=== PATIENT | male | born 1940 | race Caucasian/White ===

== ENCOUNTER 2017-11-02 11:39 | Inpatient (IN) | payer MEDICARE, MEDICAID ==
[~2017-11-02] VITALS: Ht 180.3 cm; Wt 102.2 kg
[2017-11-02] VITALS (11 sets, daily range): BP systolic 96–169; BP diastolic 58–89
[~2017-11-02 11:39] MED LIST: ALPR.25T PO; AMLO10TA82 PO; AMLO5TAB2 PO; APIX5TAB2 PO; ASP81CT PO; ASP81TEC PO; Atorvastatin Calcium PO; CHOL2000 PO; DCS100C PO; DOXY-13 PO; FINA5TAB6 PO; FNST5T PO; FRSM20T PO; GLIM4TAB PO; GLMP4T PO; HDRL25T PO; HSC375CCR PO; HYDR-757 PO; HYOS0.3710 PO; ISM60TCR PO; LBT200T PO; LISI1TAB PO; LISI40TA PO; LSNP20T PO; METF-380 PO; METO50TA7 PO; MTP100TCR PO; NEOM3.5O29 OP; OFLO5DRO2 OP; OMEG1CAP51 PO; PHEN100T26 PO; PHEN200T27 PO; PNT40TEC PO; PRED5DRO5 OP; SITA100T PO; TMSL.4C PO; [UNRECOGNIZED DRUG - OTHER] PO
--- OUTSIDE RECORDS SUMMARY | 2017-11-02 11:45 | XMS REPORT | Continuity of Care Document ---
Author Author [facility] Organization [facility] Address Unknown Phone Unavailable Allergies There is no data. Medications There is no data. Problems There is no data. Procedures There is no data. Results There is no data. Encounters ACCT No. Visit Date/Time Discharge Status Pt. Type Provider Facility Loc./Unit Complaint [id number] 07/09/2014 10:40:00 07/09/2014 16:39:00 DIS Emergency [id number] 01/26/2014 09:13:00 02/06/2014 12:45:00 DIS Inpatient [id number] 01/23/2014 11:01:00 01/23/2014 23:59:59 CLS Outpatient
[2017-11-02] MEDS ORDERED: PROPOFOL DRIP (ICU) 100 ML IV ONE (12:20)
--- NOTE | 2017-11-02 12:23 | ED CPR ---
HPI-CPR General Stated Complaint: UNRESPONSIVE Source of Information: EMS Exam Limitations: No Limitations History of Present Illness Time Seen by Provider: 11:44 Initial Comments The patient is a 77-year-old white male. He was brought in with ongoing resuscitation by EMS. The EMS crew reports that he had been in his shop at home accompanied by a friend. The friend had walked him up to the house and inside and immediately on arriving inside he collapsed. Phone call was placed to EMS at approximately 1045. At arrival it was nearly one hour later. They had been performing resuscitation had intervals for that period of time. He had a Combitube but no endotracheal tube. He had not been alert during that period he had been noted to have a multitude of arrhythmias and was defibrillated in the field. On arrival he was deeply unresponsive. His head was a purple color. There is no evidence of movement or voluntary inspiration. Chest compressions continued. At intervals there was a palpable pulse. Ultimately he exhibited ventricular tachycardia and defibrillation was performed with a return to her appeared to be a sinus rhythm. His stomach was very distended and after placing a 7.5 ET tube and NG tube was placed for decompression. He remained in a sinus rhythm with a palpable pulse his face had now become a very yeimy color but not violaceous. The EKG showed no signs of acute infarct. There was a left-sided conduction delay of indeterminate age. There was lateral ST abnormality. BARBARA Gilman from cardiology arrived in the emergency room and reviewed the physical and historical findings. He recommended an amiodarone bolus and drip. Witnessed Arrest: Yes Paramedics Initial Findings: No Respirations Pre Hospital Treatment: Bag Valve Mask, Defibrillation, Intubation, Oxygen, IV Fluids, Epinephrine (mg) Allergies and Home Medications Allergies Coded Allergies: No Known Drug Allergies (Unverified , 03/22/11) Home Medications Lisinopril 40 Mg Tablet, 40 MG PO DAILY, (Reported) Sitagliptin Phosphate 100 Mg Tablet, 100 MG PO DAILY, (Reported) [Green Tea Ext Drop] , 1 ML PO DAILY, (Reported) Review of Systems Constitutional: see HPI, other (UNRESPONSIVE) Past Nubslhx-Cuhjjb-Kbifhl Hx Immunizations Up To Date Date of Influenza Vaccine: Oct 12, 2013 Reproductive System Hx Reproductive Disorders: No Sexually Transmitted Disease: No Musculoskeletal Musculoskeletal Disorders: Arthritis Endocrine Endocrine Disorders: Diabetes, Non-Insulin dep HEENT HEENT Disorders: Cataract Hearing Impairment: Hard of Hearing Family Medical History Family Medial History: Family history: Cardiovascular disease 03 MOTHER Family history: Diabetes mellitus 03 MOTHER (AMPUTATION OF EXT.) Myocardial infarction Physical Exam Vital Signs Vital Sign - Last 12Hours 11/02/17 11/02/17 11:39 12:23 Temp 97.6 Pulse 76 Resp 20 Pulse Ox 93 O2 Delivery Mechanical Ventilator O2 Flow Rate 100.00 FiO2 40 Capillary Refill : General Appearance: Other (bagging through the Combitube. The face is purple in color. The abdomen is tightly domed and distended.) Neck: Other (short thick neck) Respiratory: Decreased Breath Sounds Cardiovascular: Other (see history of present illness relative to rhythm) Gastrointestinal: Other (distended which resolved with NG suction) Extremity: Other (no edema no palpable pulse) Neurologic/Psychiatric: Other (deeply unresponsive) Lymphatic: No Adenopathy Progress/Results/Core Measures Results/Orders Lab Results Laboratory Tests Test 11/02/17 12:25 11/02/17 12:43 Range/Units White Blood Count 22.4 H 4.3-11.0 10^3/uL Red Blood Count 5.52 4.35-5.85 10^6/uL Hemoglobin 15.6 13.3-17.7 G/DL Hematocrit 48 40-54 % Mean Corpuscular Volume 87 80-99 FL Mean Corpuscular Hemoglobin 28 25-34 PG Mean Corpuscular Hemoglobin Concent 33 32-36 G/DL Red Cell Distribution Width 14.4 10.0-14.5 % Platelet Count 301 130-400 10^3/uL Mean Platelet Volume 10.3 7.4-10.4 FL Neutrophils (%) (Auto) 84 H 42-75 % Lymphocytes (%) (Auto) 12 12-44 % Monocytes (%) (Auto) 3 0-12 % Eosinophils (%) (Auto) 1 0-10 % Basophils (%) (Auto) 0 0-10 % Neutrophils # (Auto) 18.7 H 1.8-7.8 X 10^3 Lymphocytes # (Auto) 2.7 1.0-4.0 X 10^3 Monocytes # (Auto) 0.6 0.0-1.0 X 10^3 Eosinophils # (Auto) 0.2 0.0-0.3 10^3/uL Basophils # (Auto) 0.1 0.0-0.1 10^3/uL Neutrophils % (Manual) 84 % Lymphocytes % (Manual) 6 % Band Neutrophils 10 % Blood Morphology Comment NORMAL Sodium Level 135 135-145 MMOL/L Potassium Level 3.8 3.6-5.0 MMOL/L Chloride Level 101 98-107 MMOL/L Carbon Dioxide Level 17 L 21-32 MMOL/L Anion Gap 17 H 5-14 MMOL/L Blood Urea Nitrogen 24 H 7-18 MG/DL Creatinine 1.50 H 0.60-1.30 MG/DL Estimat Glomerular Filtration Rate 45 BUN/Creatinine Ratio 16 Calcium Level 8.4 L 8.5-10.1 MG/DL Total Bilirubin 0.8 0.1-1.0 MG/DL Aspartate Amino Transf (AST/SGOT) 382 H 5-34 U/L Alanine Aminotransferase (ALT/SGPT) 447 H 0-55 U/L Alkaline Phosphatase 82 40-136 U/L Total Protein 6.6 6.4-8.2 GM/DL Albumin 3.7 3.2-4.5 GM/DL Blood Gas Puncture Site R RAD Blood Gas Patient Temperature 97.3 Arterial Blood pH 7.21 *L 7.37-7.43 Arterial Blood Partial Pressure CO2 43 35-45 MMHG Arterial Blood Partial Pressure O2 76 L 79-93 MMHG Arterial Blood HCO3 17 *L 23-27 MMOL/L Arterial Blood Total CO2 18.1 L 21.0-31.0 MMOL/L Arterial Blood Oxygen Saturation 93 L 94-100 % Arterial Blood Base Excess -9.8 L -2.5-2.5 MMOL/L Boone Test YES-POS Blood Gas Ventilator Setting YES Blood Gas Inspired Oxygen 40% My Orders Orders - MONICA YEN MD Chest 1 View, Ap/Pa Only (11/02/17 12:16) Sputum Culture (11/02/17 12:20) Propofol Drip (Icu) (Diprivan Drip (Icu) (11/02/17 12:20) Heparin (Bolus Per Protocol) (Heparin (B (11/02/17 12:27) Heparin Drip 54079 Unit/500ml (Heparin (11/02/17 12:27) Cbc With Automated Diff (11/02/17 12:40) Comprehensive Metabolic Panel (11/02/17 12:40) Troponin I (11/02/17 12:40) Ekg Tracing (11/02/17 12:40) Catheter(Urinary) Insert & Ass 03,15 (11/02/17 12:40) Ng Tube Insert & Assessment (11/02/17 12:40) Ekg Tracing (11/02/17 12:40) Arterial Blood Gas (11/02/17 12:43) Manual Differential (11/02/17 12:25) Saline Lock/Iv-Start (11/02/17 12:58) Saline Lock/Iv-Start (11/02/17 12:58) Vital Signs/I&O Vital Sign - Last 12Hours 11/02/17 11/02/17 11/02/17 11:39 11:39 12:23 Temp 97.6 Pulse 76 Resp 20 19 B/P (MAP) Pulse Ox 93 O2 Delivery Mechanical Ventilator O2 Flow Rate 100.00 FiO2 40 Departure Communication (Admissions) Progress Notes 1307 extended discussion with the daughter who is EMS trained. The public relations professional KEN is in accompaniment. The patient asked questions and had her options explained to her. Certainly transferred to [place] with the possibility of more aggressive therapy is a possibility. She states that he has told her on many occasions that he did not wish extensive life-support or instrumentation going into the future. Accordingly we ultimately agreed on admission to our ICU. He will remain on the ventilator likely for an interval No longer than 48 hours. Medications will be allowed that there is to be no further chest compression. 1315 the patient was discussed with Dr. Cheng who is on the hospitalist service today. The patient will be admitted to the ICU with the ventilator in place but and restrictions on all other modalities Impression Impression: Primary Impression: status post cardio pulmonary resuscitation Disposition: ADMITTED INPATIENT Condition: Critical Admissions Decision to Admit Reason: Admit from ER (General) Decision to Admit/Date: Nov 02, 2017 Time/Decision to Admit Time: 13:08 Departure-Patient Inst. Referrals: BELLA WILSON DO (PCP/Family) Primary Care Physician MONICA YEN MD Nov 02, 2017 12:23
[2017-11-02] MEDS ORDERED: HEParin 1000 UNIT/ML (10ML VIAL) FOR BOLUS ONE (12:27)
[2017-11-02] MEDS ORDERED: HEParin DRIP 25000 UNIT/500ML 500 ML IV ONE (12:27)
--- NOTE | 2017-11-02 12:34 | Consultation-Cardiology ---
HPI-Cardiology Cardiology Consultation: Date of Consultation 11/02/17 Time Seen by Provider: 11:55 Date of Admission Attending Physician Admitting Physician Tres Quintero DO Consulting Physician BARBARA KEN MD, MA, FACP, FACC, [facility] [place], CCDS HPI: Chief Complaint: Reason for consultation: Cardioresp arrest 77 yo man with witnessed arrest at home. EMT called. Not clear how long he was out for before EMT arrived. EMT found asystole (tracings not available). Treated per ACLS protocol, including chest compressions and iv epinephrine. EMT estimate asystole for nearly 10 min. Then a rhythm: A Fib vs sinus with ectopy. Then VF. Shocked to sinus. Then VF. Shocked to sinus with ectopy. Currently, intubated and unresponsive. Had not described any symptoms prior to this event. I spoke with his daughter. He does have a h/o CAD and PAF that he has not had any cardiac f/u on for over 15 years, according to the daughter Review of Systems-Cardiology Review of Systems Constitutional: other (ROS cannot be obtained because pt is unresponsive) OEB-Etyvmp-Iaryon Hx Immunizations Up To Date Date of Influenza Vaccine: Oct 12, 2013 Past Medical History PMH As described under Assessment. Family Medical History Family History: Family history: Cardiovascular disease 03 MOTHER Family history: Diabetes mellitus 03 MOTHER (AMPUTATION OF EXT.) Myocardial infarction Allergies and Home Medications Allergies Coded Allergies: No Known Drug Allergies (Unverified , 03/22/11) Home Medications Lisinopril 40 Mg Tablet, 40 MG PO DAILY, (Reported) Sitagliptin Phosphate 100 Mg Tablet, 100 MG PO DAILY, (Reported) [Green Tea Ext Drop] , 1 ML PO DAILY, (Reported) Physical Exam-Cardiology Physical Exam Vital Signs/I&O Vital Sign - Last 12Hours 11/02/17 12:23 Pulse 76 Resp 19 Pulse Ox 93 FiO2 40 Capillary Refill : Constitutional: other (unresponsive, on mec vent) HEENT: other (pupils poorly reactive; unresponsive) Neck: other (carotids palpable; no distinct bruit) Respiratory: other (on mech vent; appears to have R-sided flail chest) Cardiovascular: other (cor reg, S1 and S2 with faint MSM) Gastrointestinal: soft, No audible bowel sounds Extremities: No clubbing, No cyanosis, No significant edema Neurologic/Psychiatric: other (unresponsive) Skin: No rash on exposed areas, No ulcerations on exposed areas A/P-Cardiology Assessment/Admission Diagnosis Asystolic and VF arrest. Currently NSR with some ectopy. No ST elevation. Does have mod ST depression that is diffuse; there are inf Q waves Unresponsiveness after a fairly long asystolic episode Apparently flail R chest post chest compressions CAD. H/o cor stent. Cor CT angio of [address] Tanner showed patent prox LAD stent and mod mid LAD stenosis and cor calcium and LVEF 70% PAF, by history DM II, by history Discussion and Recomendations * We recommend treatment with amio to reduce risk of VF * We recommend treatment with iv heparin, if no contraindication * Given all of the multiple comorbidities given above, we recommend transfer to a tertiary care facility for consideration of hypothermia, management of resp failure, consideration of card cath, and eval of possible flail chest. Card cath is not needed as an emergency because there is no ST elevation on ECG * I discussed all of these issues in detail with Dr Goldstein (ER physician) and with patient's daughter BARBARA KEN MD FACP FAC CCDS Nov 02, 2017 12:34
--- NOTE | 2017-11-02 12:40 | Diagnostic Imaging Report ---
INDICATION: Respiratory failure. COMPARISON: 01/26/2014 FINDINGS: Single frontal radiographic view of the chest was obtained and demonstrates indwelling endotracheal tube below the clavicular heads and approximately 2 cm above the gladis. Cardiac silhouette and pulmonary vasculature are within normal limits. There is crowding of the central hilar structures secondary to low inspiratory volumes. Note is also made of mild prominence of the pulmonary interstitium, bilaterally. Indwelling enteric tube is also seen with tip in the stomach. There is no large effusion or pneumothorax on either side. Bony structures show no gross acute abnormalities. IMPRESSION: 1. Diffuse prominence of the pulmonary interstitium suspicious for interstitial pulmonary edema or pneumonia. 2. Lines and tubes, as above. Dictated by: Dictated on workstation # [id number]
[2017-11-02 12:53] LABS: ABG BASE EXCESS -9.8 MMOL/L (-2.5-2.5); ABG OXYGEN SATURATION 93 % (94-100); ABG PCO2 43 MMHG (35-45); ABG PO2 76 MMHG (79-93); ABG TCO2 18.1 MMOL/L (21.0-31.0)
[2017-11-02 12:53] LABS: BASOPHILS # (AUTO) 0.1 10^3/uL (0.0-0.1); BASOPHILS % (AUTO) 0 % (0-10); EOSINOPHILS # (AUTO) 0.2 10^3/uL (0.0-0.3); EOSINOPHILS % (AUTO) 1 % (0-10); HEMATOCRIT 48 % (40-54); HEMOGLOBIN 15.6 G/DL (13.3-17.7); LYMPHOCYTES # (AUTO) 2.7 X 10^3 (1.0-4.0); LYMPHOCYTES % (AUTO) 12 % (12-44); MEAN CORPUSCULAR HEMOGLOBIN 28 PG (25-34); MEAN CORPUSCULAR HGB CONC 33 G/DL (32-36); MEAN CORPUSCULAR VOLUME 87 FL (80-99); MEAN PLATELET VOLUME 10.3 FL (7.4-10.4); MONOCYTES # (AUTO) 0.6 X 10^3 (0.0-1.0); MONOCYTES % (AUTO) 3 % (0-12); NEUTROPHILS # (AUTO) 18.7 X 10^3 (1.8-7.8); NEUTROPHILS % (AUTO) 84 % (42-75); PLATELET COUNT 301 10^3/uL (130-400); RED BLOOD COUNT 5.52 10^6/uL (4.35-5.85); RED CELL DISTRIBUTION WIDTH 14.4 % (10.0-14.5); WHITE BLOOD COUNT 22.4 10^3/uL (4.3-11.0)
[2017-11-02 12:55] LABS: ABG PH 7.21 (7.37-7.43); ALLENS TEST YES-POS; INSPIRED O2 40%; PATIENT TEMP 97.3; VENTILATOR YES
[2017-11-02 13:05] LABS: ALBUMIN 3.7 GM/DL (3.2-4.5); BILIRUBIN,TOTAL 0.8 MG/DL (0.1-1.0); CALCIUM 8.4 MG/DL (8.5-10.1); CREATININE SERUM 1.5 MG/DL (0.60-1.30); POTASSIUM 3.8 MMOL/L (3.6-5.0); TOTAL PROTEIN 6.6 GM/DL (6.4-8.2)
[2017-11-02 13:08] LABS: BAND NEUTROPHILS 10 %; LYMPHOCYTES % (MANUAL) 6 %; NEUTROPHILS % (MANUAL) 84 %; RBC MORPH NORMAL
[2017-11-02] MEDS ORDERED: AMIODARONE INJECTION 450 MG in D5W IV SOLUTION (EXCEL) 250 ML IV ONE (13:15)
[2017-11-02] MEDS ORDERED: AMIODARONE IV SOLUTION 200 ML IV SCH (13:15)
[2017-11-02] MEDS ORDERED: NS IV 1000 ML 1,000 ML ONE (15:12)
[2017-11-02] MEDS ORDERED: GLIM4TAB PO (15:19)
[2017-11-02] MEDS ORDERED: LISI1TAB8 PO (15:19)
[2017-11-02] MEDS ORDERED: AMIODARONE IV ONE ×2 (15:45)
[2017-11-02] MEDS ORDERED: CATHETER FLUSH 10 ML SYR IV PRN (15:45)
[2017-11-02] MEDS: NS IV 1000 ML 1,000 ML IV SCH (16:12)
[2017-11-02] MEDS: AMIODARONE 360 MG/200 ML IV SCH ×2 (16:14→21:21)
[2017-11-02] MEDS ORDERED: CATHETER FLUSH 10 ML SYR ONE (17:00)
[2017-11-02] MEDS ORDERED: EPINEPHrine INJECTION 1 MG/ML AMP ONE (17:00)
[2017-11-02] MEDS ORDERED: ENOXAPARIN 80 MG/0.8 ML (LOVENOX) SYR SC SCH (17:30)
[2017-11-02] MEDS ORDERED: NS IV 1000 ML 1,000 ML IV SCH (17:30)
[2017-11-02] MEDS ORDERED: NS IV 1000 ML 1,000 ML IV ONE (18:23)
[2017-11-02] MEDS ORDERED: DEXTROSE 50% 50 ML (IMS) SYR IV PRN (18:30)
[2017-11-02] MEDS ORDERED: inSUlin (REGULAR) HUMAN 1 UNIT/0.01 ML (CHARGE PER UNIT) IV PRN (18:30)
[2017-11-02] MEDS ORDERED: INSULIN DRIP 250 UNITS/NS 250 ML IV SCH ×2 (18:30)
[2017-11-02] MEDS ORDERED: D5 1/2 NS 1000 ML IV SOLUTION 1,000 ML IV SCH (18:30)
[2017-11-02] MEDS: PROPOFOL DRIP (ICU) 100 ML IV SCH (19:22)
[2017-11-02] MEDS ORDERED: NS IV 500 ML 500 ML ONE (19:43)
[2017-11-02] MEDS ORDERED: inSUlin (REGULAR) HUMAN 1 UNIT/0.01 ML (CHARGE PER UNIT) IV NR (19:45)
[2017-11-02] MEDS: 1/2 NS IV SOLUTION 1,000 ML IV SCH ×2 (20:03→22:41)
[2017-11-02] MEDS: DEXTROSE 10% IV SOLUTION 1,000 ML IV SCH (20:04)
[2017-11-02] MEDS: D5 1/2 NS W/KCL 20 MEQ/L 1,000 ML IV SCH ×2 (20:04→22:41)
[2017-11-02] MEDS: meTOprolol 5 MG/5 ML (LOPRESSOR) VIAL IV SCH (20:15)
[2017-11-02] MEDS: 1/2 NS W/KCL 20 MEQ/L 1,000 ML IV SCH ×2 (20:15→22:41)
[2017-11-02 20:39] LABS: CALCIUM 8.4 MG/DL (8.5-10.1); CREATININE SERUM 1.97 MG/DL (0.60-1.30); POTASSIUM 4.9 MMOL/L (3.6-5.0)
[2017-11-02] MEDS: inSUlin REGULAR TPN/DRIP ONLY 250 UNITS in NORMAL SALINE 250 ML IV SCH (20:41)
[2017-11-02] MEDS ORDERED: ACETAMINOPHEN 500 MG TAB (TYLENOL) PO PRN (21:15)
[2017-11-02 22:00] LABS: BILIRUBIN,URINE NEGATIVE (NEGATIVE); CLARITY,URINE SLIGHTLY CLOUDY; COLOR,URINE RED; GLUCOSE, URINE (UA) 3+ (NEGATIVE); KETONES,URINE 1+ (NEGATIVE); LEUKOCYTE ESTERASE ,URINE 2+ (NEGATIVE); NITRITE,URINE NEGATIVE (NEGATIVE); PH,URINE 6.5 (5-9); PROTEIN,URINE 4+ (NEGATIVE); UROBILINOGEN,URINE NORMAL (NORMAL)
[2017-11-02 23:13] LABS: BASOPHILS % (AUTO) 0 % (0-10); EOSINOPHILS % (AUTO) 0 % (0-10); HEMATOCRIT 47 % (40-54); HEMOGLOBIN 15.4 G/DL (13.3-17.7); LYMPHOCYTES # (AUTO) 1.1 X 10^3 (1.0-4.0); LYMPHOCYTES % (AUTO) 4 % (12-44); MEAN CORPUSCULAR HEMOGLOBIN 28 PG (25-34); MEAN CORPUSCULAR HGB CONC 33 G/DL (32-36); MEAN CORPUSCULAR VOLUME 86 FL (80-99); MEAN PLATELET VOLUME 10.3 FL (7.4-10.4); MONOCYTES # (AUTO) 1.6 X 10^3 (0.0-1.0); MONOCYTES % (AUTO) 6 % (0-12); NEUTROPHILS # (AUTO) 23.1 X 10^3 (1.8-7.8); NEUTROPHILS % (AUTO) 90 % (42-75); PLATELET COUNT 306 10^3/uL (130-400); RED BLOOD COUNT 5.47 10^6/uL (4.35-5.85); RED CELL DISTRIBUTION WIDTH 15.1 % (10.0-14.5); WHITE BLOOD COUNT 25.7 10^3/uL (4.3-11.0)
[2017-11-02 23:21] LABS: INR 1.3 (0.8-1.4); PROTHROMBIN TIME PATIENT 15.9 SEC (12.2-14.7)
[2017-11-02 23:30] LABS: CALCIUM 8.7 MG/DL (8.5-10.1); CREATININE SERUM 2.29 MG/DL (0.60-1.30); POTASSIUM 4.4 MMOL/L (3.6-5.0)
[2017-11-03] VITALS (34 sets, daily range): BP systolic 88–163; BP diastolic 57–104
[2017-11-03] MEDS: meTOprolol 5 MG/5 ML (LOPRESSOR) VIAL IV SCH ×7 (00:04→20:55)
[2017-11-03] MEDS: 1/2 NS W/KCL 20 MEQ/L 1,000 ML IV SCH ×6 (00:14→22:32)
[2017-11-03] MEDS: D5 1/2 NS W/KCL 20 MEQ/L 1,000 ML IV SCH ×6 (02:15→22:32)
[2017-11-03] MEDS: 1/2 NS IV SOLUTION 1,000 ML IV SCH ×6 (02:15→22:32)
[2017-11-03 04:00] LABS: ABG BASE EXCESS -11.9 MMOL/L (-2.5-2.5); ABG OXYGEN SATURATION 98 % (94-100); ABG PCO2 22 MMHG (35-45); ABG PH 7.36 (7.37-7.43); ABG PO2 94 MMHG (79-93)
[2017-11-03 04:01] LABS: ALLENS TEST YES-POS; INSPIRED O2 30%; PATIENT TEMP 99.7; VENTILATOR YES
[2017-11-03] MEDS: PROPOFOL DRIP (ICU) 100 ML IV SCH (04:15)
[2017-11-03 04:16] LABS: BASOPHILS % (AUTO) 0 % (0-10); EOSINOPHILS % (AUTO) 0 % (0-10); HEMATOCRIT 46 % (40-54); HEMOGLOBIN 15.2 G/DL (13.3-17.7); LYMPHOCYTES # (AUTO) 2.1 X 10^3 (1.0-4.0); LYMPHOCYTES % (AUTO) 7 % (12-44); MEAN CORPUSCULAR HEMOGLOBIN 28 PG (25-34); MEAN CORPUSCULAR HGB CONC 33 G/DL (32-36); MEAN CORPUSCULAR VOLUME 85 FL (80-99); MEAN PLATELET VOLUME 10.3 FL (7.4-10.4); MONOCYTES % (AUTO) 10 % (0-12); NEUTROPHILS # (AUTO) 24.2 X 10^3 (1.8-7.8); NEUTROPHILS % (AUTO) 82 % (42-75); PLATELET COUNT 294 10^3/uL (130-400); RED BLOOD COUNT 5.39 10^6/uL (4.35-5.85); RED CELL DISTRIBUTION WIDTH 15.1 % (10.0-14.5); WHITE BLOOD COUNT 29.4 10^3/uL (4.3-11.0)
[2017-11-03] MEDS: DEXTROSE 10% IV SOLUTION 1,000 ML IV SCH ×3 (04:23→20:53)
[2017-11-03 04:35] LABS: ALBUMIN 3.7 GM/DL (3.2-4.5); BILIRUBIN,TOTAL 0.7 MG/DL (0.1-1.0); CALCIUM 8.7 MG/DL (8.5-10.1); CREATININE SERUM 2.42 MG/DL (0.60-1.30); MAGNESIUM 2.2 MG/DL (1.8-2.4); POTASSIUM 4.6 MMOL/L (3.6-5.0); TOTAL PROTEIN 7.1 GM/DL (6.4-8.2)
[2017-11-03 04:43] LABS: ANISOCYTOSIS SLIGHT; BAND NEUTROPHILS 5 %; BASOPHILS % (MANUAL) 0 %; EOSINOPHILS % (MANUAL) 0 %; LYMPHOCYTES % (MANUAL) 4 %; MONOCYTES % (MANUAL) 5 %; NEUTROPHILS % (MANUAL) 85 %; REACTIVE LYMPHOCYTES 1 %; TOXIC GRANULATION/VACUOLAZATIO 1+
[2017-11-03] MEDS: POTASSIUM CL 10MEQ/50ML IVPB 50 ML IV SCH (04:43)
[2017-11-03] MEDS: MAGNESIUM 1 GM/100 ML IVPB 100 ML IV SCH (04:43)
[2017-11-03] MEDS ORDERED: POTASSIUM PHOSPHATE 15 MM/NS 250 ML IVPB IV ONE ×2 (06:15)
[2017-11-03] MEDS: AMIODARONE 360 MG/200 ML IV SCH (08:06)
--- NOTE | 2017-11-03 09:24 | History & Physical-Hospitalist ---
HPI History of Present Illness: HPI/Chief Complaint Pt is a 77yoCM with a PMH of HTN, CAD, and DM who presented to the ER as an out of hospital arrest. He is unable to provide any history. All history is obtained through review of records or from his daughter. He was with a friend when he suddenly collapsed yesterday and was breathing "funny." EMS was called but it took them a while to get there (reportedly over 1 hour) as his friend did not know his address. Upon EMS arrival he was pulseless and they started CPR per ACLS protocol in transit. He reportedly had a shockable rhythmable and was shocked though I am unclear at this time what that rhythm was. He arrested again in the ER. Ultimately ROSC was obtained and he has remained in sinus rhythm on an amio gtt overnight. His daughter reports that in the days leading up to his arrest his blood pressure had been poorly controlled. She also believed him to be working in the garage unloading a truck shortly before his arrest. Source: patient Date Seen 11/03/17 Time Seen by Provider: 08:55 Attending Physician Leticia Cheng DO PCP Tres Quintero DO Referring Physician Date of Admission Nov 02, 2017 at 13:31 Home Medications & Allergies Home Medications Reviewed patient Home Medication Reconciliation Form Allergies Allergies Coded Allergies No Known Drug Allergies (Unverified03/22/11) Past Efbngcn-Tycami-Xkvizf Hx Patient Social History Alcohol Use: Denies Use Recreational Drug Use: No Smoking Status: Unknown if Ever Smoked 2nd Hand Smoke Exposure: No Physical Abuse Screen: No Sexual Abuse: No Recent Foreign Travel: No Contact w/other who traveled: No Recent Hopitalizations: No Recent Infectious Disease Expo: No Immunizations Up To Date Date of Influenza Vaccine: Oct 12, 2013 Seasonal Allergies Seasonal Allergies: No Surgeries Yes (stents X4) Abdominal Respiratory No Cardiovascular Yes (PREVIOUS CODE) Heart Attack, Hypertension Neurological No Reproductive System Hx Reproductive Disorders: No Sexually Transmitted Disease: No Gastrointestinal No Musculoskeletal Yes Arthritis Endocrine History of Endocrine Disorders: Yes Endocrine Disorders: Diabetes, Non-Insulin dep HEENT HEENT Disorders: Cataract Hearing Impairment: Hard of Hearing Cancer No Psychosocial History of Psychiatric Problem: No Integumentary History of Skin or Integumenta: No Blood Transfusions History of Blood Disorders: No Family Medical History Family Hx: Family history: Cardiovascular disease 03 MOTHER Family history: Diabetes mellitus 03 MOTHER (AMPUTATION OF EXT.) Myocardial infarction Review of Systems ROS-Unable to Obtain: clinical condition Constitutional: see HPI Physical Exam Physical Exam Vital Signs Vital Sign - Last 12Hours 11/02/17 11/02/17 11/02/17 11:39 12:23 12:27 Temp 97.6 Pulse 76 Resp 20 B/P (MAP) 110/73 Pulse Ox 93 O2 Delivery Mechanical Ventilator O2 Flow Rate 100.00 FiO2 40 Capillary Refill : Less Than 3 Seconds General Appearance: Other (intubated, sedated) HEENT: PERRL/EOMI, Moist Mucous Membranes, Other (OG tube in place) Respiratory: Crackles, Decreased Breath Sounds, Other (intubated) Cardiovascular: Regular Rate, Rhythm, No Murmur Gastrointestinal: Normal Bowel Sounds, Soft, Distended, Other (OG in place with dark fluid in tube) Extremity: No Pedal Edema, Slow Capillary Refill Neurologic/Psychiatric: Other (sedated,unresponsive) Skin: Mottled (lower extremities) Results Results/Procedures Lab Laboratory Tests 11/02/17 12:25 11/02/17 20:15 11/02/17 22:37 11/03/17 03:38 11/03/17 14:08 Assessment/Plan Admission Diagnosis Cardiac Arrest Diagnosis/Problems Diagnosis/Problems (1) Cardiac arrest Assessment & Plan: Very poor prognosis Family declined transfer for further intervention/higher level of care Now a DNR Will continue current level of care and reassess in 24 hour I turned off sedation at bedside- no improvement in Neurological status Cardiology consulted, appreciate assistance Continue on amio gtt Likely cardiac event- known history of CAD and previous out of hospital arrest per daughter (2) Respiratory failure Assessment & Plan: On Vent PEEP 5 TV 500 ABG in AM MAT Protocol Check triglyceride level as on propofol (3) High anion gap metabolic acidosis Assessment & Plan: Anions accounted for with lactic acid and creatinine Likely due to lactic acidosis though mild DKA (4) Lactic acidosis Assessment & Plan: lactic 5 Continue IVF Trend- repeat drawn now (5) DKA (diabetic ketoacidoses) Assessment & Plan: mild, gap likely from lactic acidosis Qualifiers: (6) Counseling regarding end of life decision making Assessment & Plan: Discussed very poor prognosis with daughter DNR paperwork signed- no escalation of current care Will reassess in 24 hours and see how if any improvement Will place palliative consult if still alive on Sunday for assistance Clinical Quality Measures DVT/VTE Risk/Contraindication: Risk Factor Score Per Nursin RFS Level Per Nursing on Admit: 4+=Very High SAGE RAMÍREZ MD Nov 03, 2017 09:24
--- NOTE | 2017-11-03 09:37 | Diagnostic Imaging Report ---
Clinical indication: Patient on ventilator. Exam: Portable chest x-ray upright view. Comparison: Portable chest x-ray dated 11/02/2017. Findings: There is stable appearance in positioning of the ET tube with tip seen roughly at the T4 vertebral body level. Orogastric feeding tube is stable in position. Proximal port appears to be in the distal esophagus and should be advanced at least another 15 cm to ensure appropriate positioning. There is cardiomegaly with mild pulmonary vascular congestion. There is no definite pleural effusion or pneumothorax. The remainder of this exam shows no significant interval change compared to the prior study of comparison. Impression: 1: Stable lines and tubes, as described above. The proximal port of the orogastric tube appears to be in the distal esophagus. This too should be advanced at least another 15 cm to ensure appropriate positioning. 2: Stable cardiomegaly and mild pulmonary vascular congestion. Dictated by: Dictated on workstation # [id number]
[2017-11-03] MEDS ORDERED: RT-ALBUTEROL/IPRATROPIUM 3 ML (DUONEB) VIAL INH SCH (12:00)
[2017-11-03] MEDS ORDERED: RT-ALBUTEROL/IPRATROPIUM 3 ML (DUONEB) VIAL INH PRN (12:15)
[2017-11-03] MEDS: NS IV 1000 ML 1,000 ML IV SCH ×2 (12:29→20:56)
--- NOTE | 2017-11-03 13:06 | Progress Note-Cardiology ---
Cardiology SOAP Progress Note Subjective: Unresponsive and unable to provide any history Objective: I&O/Vital Signs Vital Sign - Last 12Hours 11/03/17 11/03/17 11/03/17 11/03/17 02:00 02:25 02:33 02:42 Temp 98.5 Pulse 63 62 Resp 27 29 B/P (MAP) 88/61 (70) Pulse Ox 100 100 O2 Delivery Mechanical Ventilator Mechanical Ventilator O2 Flow Rate 40.00 40.00 FiO2 40 11/03/17 11/03/17 11/03/17 11/03/17 03:03 04:00 04:10 04:15 Temp 99.7 Pulse 62 60 Resp 30 B/P (MAP) 94/66 (75) Pulse Ox 100 O2 Delivery Mechanical Ventilator Mechanical Ventilator O2 Flow Rate 30.00 FiO2 30 11/03/17 11/03/17 11/03/17 11/03/17 04:19 05:01 06:08 06:10 Pulse 61 60 62 62 Resp 29 22 26 31 B/P (MAP) 113/67 (82) 114/71 (85) Pulse Ox 100 98 95 92 O2 Delivery Mechanical Ventilator Mechanical Ventilator O2 Flow Rate 30.00 30.00 FiO2 30 30 11/03/17 11/03/17 11/03/17 11/03/17 06:59 07:00 08:00 08:00 Temp 98.9 Pulse 62 63 58 Resp 28 21 B/P (MAP) 111/71 (84) 89/71 (77) Pulse Ox 93 100 O2 Delivery Mechanical Ventilator Mechanical Ventilator Mechanical Ventilator O2 Flow Rate 30.00 30.00 FiO2 30 11/03/17 11/03/17 11/03/17 11/03/17 08:04 09:00 10:00 10:15 Pulse 62 63 66 66 Resp 28 26 31 18 B/P (MAP) 138/74 (95) Pulse Ox 100 93 98 96 O2 Delivery Mechanical Ventilator Mechanical Ventilator Mechanical Ventilator O2 Flow Rate 30.00 30.00 30.00 FiO2 30 11/03/17 11/03/17 11/03/17 11/03/17 10:30 10:30 10:45 11:00 Pulse 66 67 68 69 Resp 27 42 39 48 B/P (MAP) 135/73 (93) 135/75 (95) 142/76 (98) Pulse Ox 97 98 94 94 O2 Delivery Mechanical Ventilator Mechanical Ventilator Mechanical Ventilator O2 Flow Rate 30.00 30.00 30.00 FiO2 30 11/03/17 11/03/17 11/03/17 11/03/17 11:15 11:30 11:57 12:00 Temp 98.6 Pulse 71 73 66 73 Resp 23 25 45 B/P (MAP) 144/79 (100) 144/84 (104) Pulse Ox 94 92 97 93 O2 Delivery Mechanical Ventilator Mechanical Ventilator Mechanical Ventilator O2 Flow Rate 30.00 30.00 30.00 FiO2 21 11/03/17 11/03/17 12:00 12:14 Pulse 70 Resp 32 Pulse Ox 93 O2 Delivery Mechanical Ventilator FiO2 30 21 Intake and Output 11/03/17 00:00 Intake Total 1890 ml Output Total 485 ml Balance 1405 ml Weight (Pounds): 225 Weight (Ounces): 6.4 Weight (Calculated Kilograms): 102.746018 Constitutional: other (unresponsive, on mec vent) Respiratory: other (on mech vent; appears to have R-sided flail chest) Cardiovascular: other (cor reg, S1 and S2 with faint MSM) Gastrointestional: soft, No audible bowel sounds Extremities: No clubbing, No cyanosis, No significant edema Neurologic/Psychiatric: other (unresponsive) Skin: No rash on exposed areas, No ulcerations on exposed areas Results/Procedures: Labs Laboratory Tests 11/02/17 17:57: Glucometer 503*H 11/02/17 19:30: Hemoglobin A1c 5.3 11/02/17 19:55: Glucometer 502*H 11/02/17 20:15: Sodium Level 136, Potassium Level 4.9, Chloride Level 102, Carbon Dioxide Level 16L, Anion Gap 18H, Blood Urea Nitrogen 34H, Creatinine 1.97H, Estimat Glomerular Filtration Rate 33, BUN/Creatinine Ratio 17, Glucose Level 558*H, Calcium Level 8.4L 11/02/17 20:35: Glucometer 471*H 11/02/17 21:26: Glucometer 460*H 11/02/17 21:40: Urine Color REDH, Urine Clarity SLIGHTLY CLOUDY, Urine pH 6.5, Urine Specific [place] 1.005L, Urine Protein 4+, Urine Glucose (UA) 3+H, Urine Ketones 1+H, Urine Nitrite NEGATIVE, Urine Bilirubin NEGATIVE, Urine Urobilinogen NORMAL, Urine Leukocyte Esterase 2+H, Urine RBC (Auto) 5+H 11/02/17 22:30: Glucometer 422*H 11/02/17 22:37: White Blood Count 25.7H, Red Blood Count 5.47, Hemoglobin 15.4, Hematocrit 47, Mean Corpuscular Volume 86, Mean Corpuscular Hemoglobin 28, Mean Corpuscular Hemoglobin Concent 33, Red Cell Distribution Width 15.1H, Platelet Count 306, Mean Platelet Volume 10.3, Neutrophils (%) (Auto) 90H, Lymphocytes (%) (Auto) 4L , Monocytes (%) (Auto) 6, Eosinophils (%) (Auto) 0, Basophils (%) (Auto) 0, Neutrophils # (Auto) 23.1H, Lymphocytes # (Auto) 1.1, Monocytes # (Auto) 1.6H, Eosinophils # (Auto) 0.0, Basophils # (Auto) 0.0, Prothrombin Time 15.9H, INR Comment 1.3, Activated Partial Thromboplast Time 34, Sodium Level 137, Potassium Level 4.4, Chloride Level 104, Carbon Dioxide Level 13L, Anion Gap 20H , Blood Urea Nitrogen 36H, Creatinine 2.29H, Estimat Glomerular Filtration Rate 28, BUN/Creatinine Ratio 16, Glucose Level 458*H, Lactic Acid Level 5.85*H, Calcium Level 8.7 11/02/17 23:27: Glucometer 468*H 11/03/17 00:35: Glucometer 414*H 11/03/17 01:13: Lactic Acid Level 5.46*H 11/03/17 01:37: Glucometer 316H 11/03/17 02:32: Glucometer 317H 11/03/17 03:29: Glucometer 301H 11/03/17 03:38: White Blood Count 29.4H, Red Blood Count 5.39, Hemoglobin 15.2, Hematocrit 46, Mean Corpuscular Volume 85, Mean Corpuscular Hemoglobin 28, Mean Corpuscular Hemoglobin Concent 33, Red Cell Distribution Width 15.1H, Platelet Count 294, Mean Platelet Volume 10.3, Neutrophils (%) (Auto) 82H, Lymphocytes (%) (Auto) 7L , Monocytes (%) (Auto) 10, Eosinophils (%) (Auto) 0, Basophils (%) (Auto) 0, Neutrophils # (Auto) 24.2H, Lymphocytes # (Auto) 2.1, Monocytes # (Auto) 3.0H, Eosinophils # (Auto) 0.0, Basophils # (Auto) 0.0, Neutrophils % (Manual) 85, Lymphocytes % (Manual) 4, Monocytes % (Manual) 5, Eosinophils % (Manual) 0, Basophils % (Manual) 0, Band Neutrophils 5, Reactive Lymphocytes 1, Toxic Granulation 1+, Anisocytosis SLIGHT, Sodium Level 137, Potassium Level 4.6, Chloride Level 105, Carbon Dioxide Level 12L, Anion Gap 20H, Blood Urea Nitrogen 39H, Creatinine 2.42H, Estimat Glomerular Filtration Rate 26, BUN/ Creatinine Ratio 16, Glucose Level 291H, Calcium Level 8.7, Magnesium Level 2.2 , Total Bilirubin 0.7, Aspartate Amino Transf (AST/SGOT) 268H, Alanine Aminotransferase (ALT/SGPT) 355H, Alkaline Phosphatase 59, Total Protein 7.1, Albumin 3.7, Triglycerides Level 181H 11/03/17 03:50: Blood Gas Puncture Site L RAD, Blood Gas Patient Temperature 99.7, Arterial Blood pH 7.36L, Arterial Blood Partial Pressure CO2 22L, Arterial Blood Partial Pressure O2 94H, Arterial Blood HCO3 12*L, Arterial Blood Total CO2 13.0L, Arterial Blood Oxygen Saturation 98, Arterial Blood Base Excess -11.9L, Boone Test YES-POS, Blood Gas Ventilator Setting YES, Blood Gas Inspired Oxygen 30% 11/03/17 04:29: Glucometer 225H 11/03/17 05:37: Glucometer 271H 11/03/17 06:27: Glucometer 192H 11/03/17 07:46: Glucometer 230H 11/03/17 08:24: Glucometer 224H 11/03/17 09:30: Lactic Acid Level 2.32*H 11/03/17 10:04: Glucometer 152H 11/03/17 10:58: Glucometer 110 11/03/17 11:48: Lactic Acid Level 2.44*H 11/03/17 12:46: Glucometer 188H Microbiology 11/02/17 Gram Stain - Final, Resulted 11/02/17 Sputum Culture - Preliminary, Resulted Usual/normal eve isolated. Laboratory Tests 11/02/17 12:25 11/02/17 20:15 11/02/17 22:37 11/03/17 03:38 A/P: Assessment: Asystolic and VF arrest. Currently NSR with some ectopy. No ST elevation. Does have mod ST depression that is diffuse; there are inf Q waves Unresponsiveness after a fairly long asystolic episode Marked metabolic acidosis GI bleed, as indicated on orogastric tube returns Apparently flail R chest post chest compressions CAD. H/o cor stent. Cor CT angio of [address] Tanner showed patent prox LAD stent and mod mid LAD stenosis and cor calcium and LVEF 70% PAF, by history DM II Plan: * D/c amio, once completed * Beta-blockers, if tolerated * Aspirin and enoxaparin, if no overt bleeding * Treat metabolic acidosis * Prognosis currently appears poor * Monitor labs * Echo to evaluate LVEF and cardiac function BARBARA KEN MD FACP [facility] CCDS Nov 03, 2017 13:06
[2017-11-03] MEDS ORDERED: SODIUM BICARB 8.4% 50 MEQ/50 ML (ABBOTT) SYR IV ONE ×2 (13:15→15:15)
[2017-11-03 13:23] LABS: OCCULT BLOOD,GASTRIC FLUID POSITIVE (NEGATIVE)
[2017-11-03] MEDS ORDERED: ASPIRIN 81 MG CHEW (CHILDREN'S ASA) PO NR (13:25)
[2017-11-03] MEDS ORDERED: PANTOPRAZOLE 40 MG/10 ML (PROTONIX) VIAL IV NR (14:09)
[2017-11-03] MEDS: RT-ALBUTEROL/IPRATROPIUM 3 ML (DUONEB) VIAL INH SCH ×3 (14:14→22:16)
[2017-11-03 14:15] LABS: HEMOGLOBIN 13.5 G/DL (13.3-17.7)
[2017-11-03] MEDS: ENOXAPARIN 40 MG/0.4 ML (LOVENOX) SYR SC SCH (14:23)
[2017-11-03 14:31] LABS: CALCIUM 7.6 MG/DL (8.5-10.1); CREATININE SERUM 2.38 MG/DL (0.60-1.30); POTASSIUM 4.6 MMOL/L (3.6-5.0)
[2017-11-03] MEDS: inSUlin REGULAR TPN/DRIP ONLY 250 UNITS in NORMAL SALINE 250 ML IV SCH (15:33)
[2017-11-03 18:40] LABS: CALCIUM 7.9 MG/DL (8.5-10.1); CREATININE SERUM 2.46 MG/DL (0.60-1.30); POTASSIUM 4.6 MMOL/L (3.6-5.0)
[2017-11-04] VITALS (34 sets, daily range): BP systolic 88–181; BP diastolic 46–95
[2017-11-04] MEDS: meTOprolol 5 MG/5 ML (LOPRESSOR) VIAL IV SCH ×7 (00:33→23:46)
[2017-11-04 00:53] LABS: CALCIUM 8.1 MG/DL (8.5-10.1); CREATININE SERUM 2.12 MG/DL (0.60-1.30); POTASSIUM 4.5 MMOL/L (3.6-5.0)
[2017-11-04] MEDS: RT-ALBUTEROL/IPRATROPIUM 3 ML (DUONEB) VIAL INH SCH ×6 (01:51→22:09)
[2017-11-04] MEDS: 1/2 NS W/KCL 20 MEQ/L 1,000 ML IV SCH ×5 (02:23→18:59)
[2017-11-04] MEDS: D5 1/2 NS W/KCL 20 MEQ/L 1,000 ML IV SCH ×5 (02:23→18:59)
[2017-11-04] MEDS: 1/2 NS IV SOLUTION 1,000 ML IV SCH ×5 (02:23→18:58)
[2017-11-04 05:10] LABS: ABG BASE EXCESS -8.5 MMOL/L (-2.5-2.5); ABG OXYGEN SATURATION 93 % (94-100); ABG PCO2 32 MMHG (35-45); ABG PO2 75 MMHG (79-93); ABG TCO2 16.9 MMOL/L (21.0-31.0)
[2017-11-04 05:20] LABS: ALLENS TEST YES-POS; INSPIRED O2 21%; PATIENT TEMP 101.2; VENTILATOR YES
[2017-11-04 05:22] LABS: ABG PH 7.33 (7.37-7.43)
[2017-11-04 05:42] LABS: BASOPHILS % (AUTO) 0 % (0-10); EOSINOPHILS % (AUTO) 0 % (0-10); HEMATOCRIT 40 % (40-54); HEMOGLOBIN 13.3 G/DL (13.3-17.7); LYMPHOCYTES # (AUTO) 1.1 X 10^3 (1.0-4.0); LYMPHOCYTES % (AUTO) 4 % (12-44); MEAN CORPUSCULAR HEMOGLOBIN 28 PG (25-34); MEAN CORPUSCULAR HGB CONC 34 G/DL (32-36); MEAN CORPUSCULAR VOLUME 84 FL (80-99); MEAN PLATELET VOLUME 10.7 FL (7.4-10.4); MONOCYTES # (AUTO) 2.1 X 10^3 (0.0-1.0); MONOCYTES % (AUTO) 8 % (0-12); NEUTROPHILS # (AUTO) 23.4 X 10^3 (1.8-7.8); NEUTROPHILS % (AUTO) 88 % (42-75); PLATELET COUNT 232 10^3/uL (130-400); RED CELL DISTRIBUTION WIDTH 15.3 % (10.0-14.5); WHITE BLOOD COUNT 26.7 10^3/uL (4.3-11.0)
[2017-11-04 05:58] LABS: CALCIUM 7.8 MG/DL (8.5-10.1); CREATININE SERUM 2.19 MG/DL (0.60-1.30); MAGNESIUM 1.7 MG/DL (1.8-2.4); PHOSPHORUS 3.4 MG/DL (2.3-4.7)
[2017-11-04] MEDS: MAGNESIUM 1 GM/100 ML IVPB 100 ML IV SCH ×3 (06:01→07:38)
[2017-11-04] MEDS: POTASSIUM CL 10MEQ/50ML IVPB 50 ML IV SCH (06:01)
[2017-11-04] MEDS: NS IV 1000 ML 1,000 ML IV SCH (06:28)
[2017-11-04] MEDS: ASPIRIN 81 MG CHEW (CHILDREN'S ASA) PO SCH (07:40)
[2017-11-04] MEDS: PROPOFOL DRIP (ICU) 100 ML IV SCH (08:57)
[2017-11-04] MEDS ORDERED: PANTOPRAZOLE 40 MG/10 ML (PROTONIX) VIAL IV SCH (09:00)
--- NOTE | 2017-11-04 09:47 | Progress Note-Hospitalist ---
Subjective HPI/CC On Admission Date Seen by Provider: Nov 04, 2017 Time Seen by Provider: 09:00 Pt is a 77yoCM with a PMH of HTN, CAD, and DM who presented to the ER as an out of hospital arrest. He is unable to provide any history. All history is obtained through review of records or from his daughter. He was with a friend when he suddenly collapsed yesterday and was breathing "funny." EMS was called but it took them a while to get there (reportedly over 1 hour) as his friend did not know his address. Upon EMS arrival he was pulseless and they started CPR per ACLS protocol in transit. He reportedly had a shockable rhythmable and was shocked though I am unclear at this time what that rhythm was. He arrested again in the ER. Ultimately ROSC was obtained and he has remained in sinus rhythm on an amio gtt overnight. His daughter reports that in the days leading up to his arrest his blood pressure had been poorly controlled. She also believed him to be working in the garage unloading a truck shortly before his arrest. Subjective/Events-last exam patient was taken off sedation and was still unresponsive. Increased blood pressure and increased heart rate necessitated restarting sedation. Currently his respiratory rate is around 30 he's on an FiO2 of 21 percent and he satting around 98 percent. The daughter is in attendance. She remains conflicted about the possibility of extubation versus some mental recovery. I discussed with her the options of going ahead and trying to have him be on pressure support and see how he did by himself. Objective Exam Vital Signs Vital Sign - Last 12Hours 11/02/17 11/02/17 11/02/17 11:39 12:23 12:27 Temp 97.6 Pulse 76 Resp 20 B/P (MAP) 110/73 Pulse Ox 93 O2 Delivery Mechanical Ventilator O2 Flow Rate 100.00 FiO2 40 Capillary Refill : Less Than 3 Seconds General Appearance: No Apparent Distress, Other (on the ventilator unresponsive.) Neck: Limited Range of Motion Respiratory: Decreased Breath Sounds, Other (increased respiratory rate) Cardiovascular: Tachycardia Gastrointestinal: Abnormal Bowel Sounds, Distended Extremity: Slow Capillary Refill Neurologic/Psychiatric: Other (unresponsive but on propofol) Skin: Cool, Pallor Results/Procedures Lab Laboratory Tests 11/03/17 14:08 11/03/17 18:19 11/04/17 00:28 11/04/17 05:05 Assessment/Plan Assessment and Plan Assess & Plan/Chief Complaint (1) Cardiac arrest Assessment & Plan: Very poor prognosis Family declined transfer for further intervention/higher level of care Now a DNR Will continue current level of care,the begin weaning trials as patient is breathing over the ventilator patient back on sedation without improvement in Neurological status Cardiology consulted, appreciate assistance Continue on amio gtt Likely cardiac event- known history of CAD and previous out of hospital arrest per daughter (2) Respiratory failure Assessment & Plan: On Vent PEEP 5 TV 500 ABG shows metabolic acidosis MAT Protocol triglyceride level is acceptable (3) High anion gap metabolic acidosis Assessment & Plan: Anions accounted for with lactic acid and creatinine Likely due to lactic acidosis (4) Lactic acidosis Assessment & Plan: trending downward Continue IVF (5) DKA (diabetic ketoacidoses) Assessment & Plan: mild, gap likely from lactic acidosis-on insulin drip Qualifiers: (6) Counseling regarding end of life decision making Assessment & Plan: Discussed very poor prognosis with daughter DNR paperwork signed- no escalation of current care Will began weaning trials and consider extubation. Will place palliative consult if still alive on Sunday for assistance 7. leukocytosis- uncertain etiology-suspect reactive secondary to CODE-we'll monitor I was called by eICU who recommended changing to Precedex from the propofol and obtaining the CT head. CT head may show cerebral edema which would help confirm hypoxic brain damage. EEG could be considered however we do not get our results for a week or 2 after we obtain the EEG LETTY PORTILLO MD Nov 04, 2017 9:47 am
--- NOTE | 2017-11-04 10:44 | Diagnostic Imaging Report ---
Clinical indication: Patient on ventilator. Exam: Portable chest x-ray upright view. Comparison: Portable chest x-ray upright view dated 11/03/2017. Findings: Stable cardiomegaly and mild pulmonary vascular congestion. There is continued bibasilar roughly 2.6 cm from the expected region of the gladis. Orogastric or nasogastric feeding tube is seen overlying the upper and mid mediastinal region but not well visualized distally. Assurance of good position of this tube is suggested. The remainder of this exam shows no significant interval change compared to the prior study of comparison. Impression: 1.: The distal aspect of the orogastric or nasogastric feeding tube is not well visualized and assurance of good position is suggested. X-ray of the abdomen may help better evaluate. 2: Stable cardiomegaly and mild pulmonary vascular congestion. 3: Otherwise stable lines and tubes in good position, as described above. Dictated by: Dictated on workstation # [id number]
[2017-11-04] MEDS: DEXTROSE 10% IV SOLUTION 1,000 ML IV SCH ×2 (10:47→21:30)
[2017-11-04] MEDS: ENOXAPARIN 40 MG/0.4 ML (LOVENOX) SYR SC SCH (13:00)
[2017-11-04] MEDS ORDERED: D5W 1000 ML IV SOLUTION 1,000 ML IV SCH (13:45)
[2017-11-04] MEDS ORDERED: SODIUM BICARBONATE 8.4% VIAL 100 MEQ in D5W 1000 ML IV SOLUTION 1,000 ML IV SCH (13:45)
[2017-11-04] MEDS ORDERED: ENOXAPARIN 30 MG/0.3 ML (LOVENOX) SYR SC SCH (13:45)
--- NOTE | 2017-11-04 14:31 | Diagnostic Imaging Report ---
PROCEDURE: CT head without contrast. TECHNIQUE: Multiple contiguous axial images were obtained through the brain without the use of intravenous contrast. INDICATION: Code. Patient is on ventilator. Comparison: None Findings: No acute intracranial hemorrhage is seen. There is no mass effect or midline shift. There is some vague hypodensity in the posterior left parietal and occipital lobe which may represent some edema. There may be a minimal amount of edema in the right occipital lobe as well medially. There is mild diffuse atrophy. Ventricles appear normal. The paranasal sinuses and mastoids are clear as visualized. Impression: 1. No acute intracranial hemorrhage is seen. 2. Suspect some cerebral edema involving the posterior left parietal and occipital lobe as well as the medial right occipital lobe. There is no mass effect or midline shift. 3. No additional abnormality is seen. Report was called to Shayy/[facility] by makeda at 2:30 p.m. Dictated by: Dictated on workstation # [id number]
[2017-11-04] MEDS: inSUlin REGULAR TPN/DRIP ONLY 250 UNITS in NORMAL SALINE 250 ML IV SCH (14:34)
--- NOTE | 2017-11-04 14:35 | Progress Note-Cardiology ---
Cardiology SOAP Progress Note Subjective: Unresponsive. On [facility] vent Objective: I&O/Vital Signs Vital Sign - Last 12Hours 11/04/17 11/04/17 11/04/17 11/04/17 03:00 04:00 04:00 04:12 Pulse 105 102 105 Resp 16 12 31 B/P (MAP) 133/83 (100) 144/92 (109) Pulse Ox 98 98 99 O2 Delivery Mechanical Ventilator Mechanical Ventilator Mechanical Ventilator O2 Flow Rate 21.00 21.00 FiO2 21 21 11/04/17 11/04/17 11/04/17 11/04/17 05:00 05:52 06:00 06:00 Temp 101.2 Pulse 95 99 Resp 14 16 B/P (MAP) 146/76 (99) 159/79 (105) Pulse Ox 100 100 O2 Delivery Mechanical Ventilator Mechanical Ventilator Mechanical Ventilator Mechanical Ventilator O2 Flow Rate 21.00 21.00 21.00 21.00 11/04/17 11/04/17 11/04/17 11/04/17 07:00 07:12 07:18 08:00 Temp 100.7 Pulse 97 96 90 93 Resp 30 30 31 B/P (MAP) 146/77 (100) 116/85 (95) Pulse Ox 100 100 100 O2 Delivery Mechanical Ventilator Mechanical Ventilator O2 Flow Rate 21.00 21.00 FiO2 21 11/04/17 11/04/17 11/04/17 11/04/17 08:00 08:43 08:57 09:59 Temp 99.8 98.5 Pulse 89 86 Resp 32 B/P (MAP) 116/85 158/90 (112) Pulse Ox 100 O2 Delivery Mechanical Ventilator Mechanical Ventilator O2 Flow Rate 21.00 FiO2 21 11/04/17 11/04/17 11/04/17 11/04/17 10:03 10:28 11:00 11:35 Temp 98.2 Pulse 91 89 83 86 Resp 31 31 28 32 B/P (MAP) 181/95 (123) 109/58 (75) 116/58 (77) Pulse Ox 100 99 98 98 O2 Delivery Mechanical Ventilator Mechanical Ventilator Mechanical Ventilator O2 Flow Rate 21.00 21.00 21.00 FiO2 21 11/04/17 11/04/17 11/04/17 11:39 12:00 13:00 Pulse 83 81 Resp 31 B/P (MAP) 104/59 (74) Pulse Ox 98 O2 Delivery Mechanical Ventilator Mechanical Ventilator O2 Flow Rate 21.00 FiO2 21 Intake and Output 11/03/17 23:59 Intake Total 0 ml Output Total 1525 ml Balance -1525 ml Weight (Pounds): 225 Weight (Ounces): 6.4 Weight (Calculated Kilograms): 102.531159 Constitutional: other (unresponsive, on mec vent) Respiratory: other (on mech vent; appears to have R-sided flail chest) Cardiovascular: other (cor reg, S1 and S2 with faint MSM) Gastrointestional: soft, No audible bowel sounds Extremities: No clubbing, No cyanosis, No significant edema Neurologic/Psychiatric: other (unresponsive) Skin: No rash on exposed areas, No ulcerations on exposed areas Results/Procedures: Labs Laboratory Tests 11/03/17 14:40: Glucometer 233H 11/03/17 16:41: Glucometer 162H 11/03/17 18:19: Sodium Level 135, Potassium Level 4.6, Chloride Level 103, Carbon Dioxide Level 16L, Anion Gap 16H, Blood Urea Nitrogen 45H, Creatinine 2.46H, Estimat Glomerular Filtration Rate 26, BUN/Creatinine Ratio 18, Glucose Level 154H, Calcium Level 7.9L 11/03/17 19:27: Glucometer 156H 11/03/17 20:49: Glucometer 135H 11/03/17 21:16: Glucometer 163H 11/03/17 22:16: Glucometer 135H 11/03/17 22:51: Glucometer 129H 11/03/17 23:15: Glucometer 130H 11/03/17 23:47: Glucometer 141H 11/04/17 00:28: Sodium Level 135, Potassium Level 4.5, Chloride Level 102, Carbon Dioxide Level 14L, Anion Gap 19H, Blood Urea Nitrogen 45H, Creatinine 2.12H, Estimat Glomerular Filtration Rate 30, BUN/Creatinine Ratio 21, Glucose Level 135H, Calcium Level 8.1L 11/04/17 00:29: Glucometer 134H 11/04/17 01:27: Glucometer 135H 11/04/17 01:58: Glucometer 143H 11/04/17 02:39: Glucometer 152H 11/04/17 03:39: Glucometer 171H 11/04/17 04:37: Glucometer 162H 11/04/17 05:00: Blood Gas Puncture Site R RAD, Blood Gas Patient Temperature 101.2, Arterial Blood pH 7.33*L, Arterial Blood Partial Pressure CO2 32L, Arterial Blood Partial Pressure O2 75L, Arterial Blood HCO3 16*L, Arterial Blood Total CO2 16.9L, Arterial Blood Oxygen Saturation 93L, Arterial Blood Base Excess -8.5L, Boone Test YES-POS, Blood Gas Ventilator Setting YES, Blood Gas Inspired Oxygen 21% 11/04/17 05:05: White Blood Count 26.7H, Red Blood Count 4.70, Hemoglobin 13.3, Hematocrit 40, Mean Corpuscular Volume 84, Mean Corpuscular Hemoglobin 28, Mean Corpuscular Hemoglobin Concent 34, Red Cell Distribution Width 15.3H, Platelet Count 232, Mean Platelet Volume 10.7H, Neutrophils (%) (Auto) 88H, Lymphocytes (%) (Auto) 4L, Monocytes (%) (Auto) 8, Eosinophils (%) (Auto) 0, Basophils (%) (Auto) 0, Neutrophils # (Auto) 23.4H, Lymphocytes # (Auto) 1.1, Monocytes # (Auto) 2.1H, Eosinophils # (Auto) 0.0, Basophils # (Auto) 0.0, Sodium Level 133L, Potassium Level 4.0, Chloride Level 103, Carbon Dioxide Level 13L, Anion Gap 17H, Blood Urea Nitrogen 43H, Creatinine 2.19H, Estimat Glomerular Filtration Rate 29, BUN/ Creatinine Ratio 20, Glucose Level 187H, Calcium Level 7.8L, Phosphorus Level 3.4, Magnesium Level 1.7L 11/04/17 05:47: Glucometer 195H 11/04/17 06:29: Glucometer 211H 11/04/17 07:23: Glucometer 171H 11/04/17 08:29: Glucometer 191H 11/04/17 09:29: Glucometer 202H 11/04/17 10:29: Glucometer 187H 11/04/17 11:35: Glucometer 187H 11/04/17 12:45: Glucometer 184H 11/04/17 13:48: Glucometer 180H Microbiology 11/02/17 Gram Stain - Final, Complete 11/02/17 Sputum Culture - Final, Complete Fungus A/P: Assessment: Asystolic and VF arrest. Currently NSR with some ectopy. No ST elevation. Does have mod ST depression that is diffuse; there are inf Q waves Unresponsiveness after a fairly long asystolic episode Marked metabolic acidosis Echo of 11/03/17: LVEF 45-50%, MAC and AoV calcification w/o stenoses, PASP 55- 60 mmHg GI bleed, as indicated on orogastric tube returns. This is now improving Apparently flail R chest post chest compressions CAD. H/o cor stent. Cor CT angio of [address] Tanner showed patent prox LAD stent and mod mid LAD stenosis and cor calcium and LVEF 70% PAF, by history DM II Plan: * Complex management due to multiple comorbidities * I discussed his case in detail with Dr Garcia of the [facility] * Treat metabolic acidosis * Add low dose Lovenox, now that GI bleed appears to be settling down * Add aspirin once GI bleed resolves * Prognosis currently appears poor * Monitor labs BARBARA KEN MD FACP [facility] CCDS Nov 04, 2017 14:35
[2017-11-04] MEDS: DEXMEDETOMIDINE INJECTION 200 MCG in NS (IVPB) 50 ML IV SCH ×2 (15:09→22:32)
[2017-11-04] MEDS: D5W IV SCH (16:22)
[2017-11-04] MEDS: SODIUM BICARBONATE IV SCH (16:22)
[2017-11-04] MEDS: KCL IV SCH (16:22)
[2017-11-04] MEDS ORDERED: NS IV 1000 ML X 1 WIDE OPEN IV ONE (20:15)
[2017-11-05] VITALS (14 sets, daily range): BP systolic 66–128; BP diastolic 43–68
[2017-11-05] MEDS: RT-ALBUTEROL/IPRATROPIUM 3 ML (DUONEB) VIAL INH SCH ×2 (02:04→06:38)
[2017-11-05] MEDS: D5W IV SCH (03:44)
[2017-11-05] MEDS: KCL IV SCH (03:44)
[2017-11-05] MEDS: SODIUM BICARBONATE IV SCH (03:44)
[2017-11-05] MEDS: meTOprolol 5 MG/5 ML (LOPRESSOR) VIAL IV SCH ×2 (03:46→08:02)
[2017-11-05 04:54] LABS: BASOPHILS % (AUTO) 0 % (0-10); EOSINOPHILS % (AUTO) 0 % (0-10); HEMATOCRIT 42 % (40-54); HEMOGLOBIN 14.2 G/DL (13.3-17.7); LYMPHOCYTES % (AUTO) 9 % (12-44); MEAN CORPUSCULAR HEMOGLOBIN 28 PG (25-34); MEAN CORPUSCULAR HGB CONC 34 G/DL (32-36); MEAN CORPUSCULAR VOLUME 83 FL (80-99); MEAN PLATELET VOLUME 10.4 FL (7.4-10.4); MONOCYTES # (AUTO) 0.6 X 10^3 (0.0-1.0); MONOCYTES % (AUTO) 6 % (0-12); NEUTROPHILS % (AUTO) 85 % (42-75); PLATELET COUNT 231 10^3/uL (130-400); RED BLOOD COUNT 5.04 10^6/uL (4.35-5.85); RED CELL DISTRIBUTION WIDTH 15.5 % (10.0-14.5); WHITE BLOOD COUNT 10.6 10^3/uL (4.3-11.0)
[2017-11-05 05:04] LABS: ABG BASE EXCESS -7.4 MMOL/L (-2.5-2.5); ABG OXYGEN SATURATION 79 % (94-100); ABG PCO2 40 MMHG (35-45); ABG PO2 46 MMHG (79-93); ABG TCO2 19.6 MMOL/L (21.0-31.0)
[2017-11-05 05:10] LABS: ABG PH 7.27 (7.37-7.43); ALLENS TEST YES-POS
[2017-11-05 05:11] LABS: INSPIRED O2 30; PATIENT TEMP 97.1; VENTILATOR YES
[2017-11-05 05:17] LABS: CREATININE SERUM 2.32 MG/DL (0.60-1.30); PHOSPHORUS 4.6 MG/DL (2.3-4.7); POTASSIUM 4.7 MMOL/L (3.6-5.0)
[2017-11-05 05:29] LABS: SMEAR SCAN COMMENT YES
[2017-11-05] MEDS: MAGNESIUM 1 GM/100 ML IVPB 100 ML IV SCH (07:00)
[2017-11-05] MEDS: DEXTROSE 10% IV SOLUTION 1,000 ML IV SCH (07:00)
[2017-11-05] MEDS: POTASSIUM CL 10MEQ/50ML IVPB 50 ML IV SCH (07:00)
--- NOTE | 2017-11-05 07:06 | Progress Note-Hospitalist ---
Subjective HPI/CC On Admission Date Seen by Provider: Nov 05, 2017 Time Seen by Provider: 06:15 Pt is a 77yoCM with a PMH of HTN, CAD, and DM who presented to the ER as an out of hospital arrest. He is unable to provide any history. All history is obtained through review of records or from his daughter. He was with a friend when he suddenly collapsed yesterday and was breathing "funny." EMS was called but it took them a while to get there (reportedly over 1 hour) as his friend did not know his address. Upon EMS arrival he was pulseless and they started CPR per ACLS protocol in transit. He reportedly had a shockable rhythmable and was shocked though I am unclear at this time what that rhythm was. He arrested again in the ER. Ultimately ROSC was obtained and he has remained in sinus rhythm on an amio gtt overnight. His daughter reports that in the days leading up to his arrest his blood pressure had been poorly controlled. She also believed him to be working in the garage unloading a truck shortly before his arrest. Subjective/Events-last exam patient remains unresponsive. His respiratory rate is dropping as is his blood pressure. His right pupil has become dilated and fixed. Urine output is dropping. Review of Systems General: Other (patient is unresponsive) Objective Exam Vital Signs Vital Sign - Last 12Hours 11/02/17 11/02/17 11/02/17 11:39 12:23 12:27 Temp 97.6 Pulse 76 Resp 20 B/P (MAP) 110/73 Pulse Ox 93 O2 Delivery Mechanical Ventilator O2 Flow Rate 100.00 FiO2 40 Capillary Refill : Less Than 3 Seconds General Appearance: No Apparent Distress, Other (unresponsive) Eyes: Right Eye Abnormal Pupil (fixed and dilated) Neck: Limited Range of Motion Respiratory: Lungs Clear Cardiovascular: Regular Rate, Rhythm Gastrointestinal: Abnormal Bowel Sounds, Distended Extremity: Other Neurologic/Psychiatric: Other (flaccid throughout unresponsive) Skin: Pallor Results/Procedures Lab Laboratory Tests 11/05/17 04:15 Assessment/Plan Assessment and Plan Assess & Plan/Chief Complaint (1) Cardiac arrest Assessment & Plan: Very poor prognosis Family declined transfer for further intervention/higher level of care DNR Cardiology consulted, appreciate assistance Continue on amio gtt Likely cardiac event- known history of CAD and previous out of hospital arrest per daughter CT brain shows bilateral cerebral edema consistent with hypoxic brain injury. patient now has evidence of herniation with a fixed and dilated right pupil and a left pupil that remains constricted. Patient's vital signs are declining with a decreased respiratory rate and blood pressure decreased urine output. (2) Respiratory failure Assessment & Plan: On Vent PEEP 5 TV 500 ABG shows metabolic acidosis MAT Protocol triglyceride level is acceptable weaning trials were unsuccessful yesterday because of increased respiratory rate and heart rate. He remains on the ventilator with stable settings (3) High anion gap metabolic acidosis Assessment & Plan: Anions accounted for with lactic acid and creatinine Likely due to lactic acidosis-IV fluids were changed yesterday to include bicarbonate however the patient remains acidotic (4) Lactic acidosis Assessment & Plan: trending downward Continue IVF (5) DKA (diabetic ketoacidoses) Assessment & Plan: mild, gap likely from lactic acidosis-on insulin drip Qualifiers: (6) Counseling regarding end of life decision making Assessment & Plan: Discussed very poor prognosis with daughter DNR paperwork signed- no escalation of current care Will began weaning trials and consider extubation. Will place palliative consult if still alive on Sunday for assistance 7. leukocytosis- resolved 8. Progressive acute renal failure trending towards oliguric I was called by eICU who recommended changing to Precedex from the propofol and obtaining the CT head. CT head may show cerebral edema which would help confirm hypoxic brain damage. EEG could be considered however we do not get our results for a week or 2 after we obtain the EEG LETTY PORTILLO MD Nov 05, 2017 7:06 am
--- NOTE | 2017-11-05 07:12 | Diagnostic Imaging Report ---
Portable upright radiograph of the chest. INDICATION: Dyspnea. COMPARISON: 11/04/2017. FINDINGS: ET tube is in good position. NG tube is in the proximal stomach. It could be advanced by 7 cm into the mid stomach. The heart size is enlarged. There are increased right basilar infiltrates and vascular congestion. No significant effusion. No pneumothorax. The mediastinum and kavon appear unremarkable. IMPRESSION: 1. Increasing pulmonary vascular congestion and development of right basilar infiltrates or atelectasis. 2. The NG tube terminates in the proximal stomach area. Advancing it by 7 cm suggested. Dictated by: Dictated on workstation # [id number]
[2017-11-05] MEDS: ASPIRIN 81 MG CHEW (CHILDREN'S ASA) PO SCH (08:02)
--- NOTE | 2017-11-08 10:29 | Physician Query Clarification ---
PQ-Further Specificity Admission/Discharge Admission Date: Nov 02, 2017 at 13:31 Discharge Date: Nov 05, 2017 at 09:55 The medical record reflects the following clinical scenario: History/Risk Factors: CAD History of previous out of hospital arrest. Clinical Findings: Ventricular tachycardia Troponin 0.44 Treatment: Defibrillation, CPR/chest compressions, IV Amiodarone HCI, IV Heparin. Assessment & Plan indicates likely cardiac event-known history of CAD and previous out of hospital arrest per daughter. Question: Can you further specify cardiac event per the clinical indicators above? Please document below. 1. Myocardial infarction. 2. Ventricular tachycardia. 3. Other, with explanation of the clinical findings. 4. Clinically undetermined, no explanation for the clinical findings. PHYSICIAN RESPONSE Can you specify per above: 2 Explanation/Clinical Findings in my judgement, the patient had a cardiac arrhythmia (v-Tach) causing his cardiac arrest. The elevated troponin could have easily been secondary to defibrillation. His ejection fraction was preserved and did not have any wall motion abnormalities consistent with a MN. 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 In responding to this query, please exercise your independent professional judgment. The purpose of this communication is to more accurately reflect the complexity of your patients condition. The fact that a question is asked does not imply that any particular answer is desired or expected. Thank you for your timely response to this clarification. Requestors name: Raven Phoenix [facility] Phone # ext [phone] or [phone] THIS PHYSICIAN QUERY FORM IS A PERMANENT PART OF THE MEDICAL RECORD RAVEN [place] Nov 08, 2017 10:29 LETTY PORTILLO MD Nov 11, 2017 13:21
== END 2017-11-05 09:55 | disposition expired | DRG 308 ==
LOC: EDUNIT# 11:39 → ER 11:41 → ICU 13:31
PROVIDERS: ADMIT Internal Medicine; ATTEND Internal Medicine
PROC: 5A1945Z Respiratory Ventilation, 24-96 Consecutive Hours (ICD-10-PCS; principal; 2017-11-02)
DX: I47.2 Ventricular tachycardia (principal); I49.01 Ventricular fibrillation; I46.2 Cardiac arrest due to underlying cardiac condition; J96.90 Respiratory failure, unspecified, unspecified whether with hypoxia or hypercapnia; G93.1 Anoxic brain damage, not elsewhere classified; G93.5 Compression of brain; S22.5XXA Flail chest, initial encounter for closed fracture; E11.10 Type 2 diabetes mellitus with ketoacidosis without coma; Z66 Do not resuscitate; E87.2 Acidosis; K92.2 Gastrointestinal hemorrhage, unspecified; N17.9 Acute kidney failure, unspecified; I48.0 Paroxysmal atrial fibrillation; I25.10 Atherosclerotic heart disease of native coronary artery without angina pectoris; I10 Essential (primary) hypertension; M19.91 Primary osteoarthritis, unspecified site; I25.2 Old myocardial infarction; D72.829 Elevated white blood cell count, unspecified; Z95.5 Presence of coronary angioplasty implant and graft
CPT/HCPCS: 31500; 36415; 51702; 70450; 71010; 80048; 80053; 81002; 82010; 82271; 82805; 82962; 83036; 83605; 83735; 84100; 84478; 84484; 85007; 85014; 85018; 85025; 85027; 85610; 85730; 87070; 87205; 93005; 93041; 93306; 94002; 94003; 94640; 94799; 96365; 96366; 96367; 96368